=== PATIENT | male | born 1950 | race Caucasian/White ===

== ENCOUNTER 2017-02-19 17:19 | Emergency (ER) | payer BC ==
[2017-02-19] MEDS ORDERED: Sodium Chloride 0.9% 1,000 ML IV SCH (17:30)
--- NOTE | 2017-02-19 18:04 | EDM.PDOC ---
ED HPI GENERAL MEDICAL PROBLEM - General Chief Complaint: Neuro Symptoms/Deficits Stated Complaint: UNRESPONSIVE Time Seen by Provider: 02/19/17 17:30 Source of Information: Reports: EMS, Family History Limitations: Reports: Altered Mental Status, Intoxication - History of Present Illness INITIAL COMMENTS - FREE TEXT/NARRATIVE: 66-year-old male with chronic alcoholism fell yesterday striking the floor and breaking a piece of furniture. He had right-sided bruises and hit his head, his wanted to bring him in for evaluation but he refused. He has been at home alone all day today, his son went in to do a well check on him as he tends to drink when he is alone and found him lying on the floor. Initially he was arousable but he had lots of bruises on the right side of his body, and didn't seem to be able to communicate with his son. EMS was called and brought him in. Onset: Unknown/Unsure Severity: Severe - Related Data Allergies Allergy/AdvReac Type Severity Reaction Status Date / Time No Known Allergies Allergy Verified 02/19/17 18:11 Home Meds: Home Meds Aspirin [Halfprin] 81 mg PO DAILY 07/04/16 [History] Past Medical History HEENT History: Reports: Hard of Hearing Other HEENT History: Right ear injury with hearing loss Respiratory History: Reports: Asthma, Intubation, Previous, Pneumothorax Other Respiratory History: traumaic injury 4 years ago Musculoskeletal History: Reports: Fracture Other Musculoskeletal History: 7 rib fracture with 13 fractures in those ribs Neurological History: Reports: Head Trauma, Other (See Below) Other Neuro History: TBI. crainial fractures Psychiatric History: Reports: Addiction Other Psychiatric History: ETOH - Past Surgical History GI Surgical History: Reports: Hernia, Inguinal Neurological Surgical History: Reports: Lumbar Spine Social & Family History - Tobacco Use Smoking Status *Q: Never Smoker - Caffeine Use Caffeine Use: Reports: None - Recreational Drug Use Recreational Drug Use: No ED ROS GENERAL - Review of Systems Review Of Systems: Unable To Obtain ED EXAM, NEURO - Physical Exam Exam: See Below Exam Limited By: Physical Impairment General Appearance: Alert Eye Exam: Bilateral Eye: EOMI (EOMs are intact but he focuses to the left) Head Exam: Atraumatic (No obvious external traumatic findings) Neck: Supple Respiratory/Chest: No Respiratory Distress, Lungs Clear Cardiovascular: Regular Rate, Rhythm, Other (Bruise on the upper right chest) GI/Abdominal: Soft, Non-Tender, Other (Large bruise over the right abdomen) Neurological: Withdraws to Pain, Other (Weak grasp strength on the right, attention deficit to the right) Skin Exam: Other (Several large bruises over the right side of his body) Course - Vital Signs Last Recorded V/S: Last Vital Signs Temp 99.3 F 02/19/17 17:29 Pulse 98 02/19/17 17:29 Resp 16 02/19/17 17:29 BP 140/84 02/19/17 17:29 Pulse Ox 85 L 02/19/17 17:29 - Orders/Labs/Meds Orders: Active Orders 24 hr Category Date Time Status Head wo Cont [CT] Stat Exams 02/19/17 17:29 Taken Labs: Laboratory Tests 02/19/17 02/19/17 02/19/17 Range/Units 17:39 17:39 17:39 WBC 6.0 (4.5-11.0) K/uL RBC 3.89 L (4.30-5.90) M/uL Hgb 13.8 D (12.0-15.0) g/dL Hct 38.9 L (40.0-54.0) % MCV 100 H (80-98) fL MCH 36 H (27-31) pg MCHC 36 (32-36) % Plt Count 134 L (150-400) K/uL Neut % (Auto) 83 H (36-66) % Lymph % (Auto) 6 L (24-44) % [place] % (Auto) 10 H (2-6) % Eos % (Auto) 0 L (2-4) % Baso % (Auto) 1 (0-1) % Sodium 140 (140-148) mmol/L Potassium 3.8 (3.6-5.2) mmol/L Chloride 101 (100-108) mmol/L Carbon Dioxide 26 (21-32) mmol/L Anion Gap 13.0 (5.0-14.0) mmol/L BUN 7 (7-18) mg/dL Creatinine 0.8 (0.8-1.3) mg/dL Est Cr Clr Drug Dosing TNP Estimated GFR (MDRD) > 60 (>60) Glucose 109 H (74-106) mg/dL Calcium 8.2 L (8.5-10.1) mg/dL Total Bilirubin 2.1 H (0.2-1.0) mg/dL AST 189 H (15-37) U/L ALT 95 H (12-78) U/L Alkaline Phosphatase 131 H (46-116) U/L Creatine Kinase 998 H (39-308) U/L Total Protein 7.2 (6.4-8.2) g/dL Albumin 3.3 L (3.4-5.0) g/dL Globulin 3.9 H (2.3-3.5) g/dL Albumin/Globulin Ratio 0.9 L (1.2-2.2) Ethyl Alcohol 162 mg/dL Meds: Medications Discontinued Medications Generic Name Dose Route Start Last Admin Trade Name Freq PRN Reason Stop Dose Admin Sodium Chloride 1,000 mls @ 1,000 mls/hr 02/19/17 17:30 02/19/17 18:17 Normal Saline IV 1,000 mls/hr ASDIRECTED IVAN Administration - Re-Assessments/Exams Free Text/Narrative Re-Assessment/Exam: 02/19/17 18:[address] scan was obtained and showed a large acute and subacute subdural hemorrhage in the left hemisphere up to 18 mm with shift. CBC was unremarkable. Because of the risk of rhabdomyolysis normal saline bolus was initiated. Urgent transfer by air was arranged to [facility] for neurosurgery consultation and treatment. Chemistry profile was pending at time of dictation. ETOH was .16 Departure - Departure Time of Disposition: 18:49 Disposition: DC/Tfer to Other Condition: Poor Clinical Impression: Alcohol abuse, Subdural hematoma - Discharge Information Referrals: PCP,None [Primary Care Provider] - Forms: ED Department Discharge Care Plan Goals: Patient was transferred by air care to [facility] for neurosurgical consultation and treatment. - My Orders Last 24 Hours: My Active Orders 02/19/17 17:29 Head wo Cont [CT] Stat - Assessment/Plan Last 24 Hours: My Active Orders 02/19/17 17:29 Head wo Cont [CT] Stat
[2017-02-19 18:11] VITALS: BP 140/84
== END 2017-02-19 18:45 | disposition other institution (70) ==
LOC: JP.ED 17:19
DX: S06.5X0A Traumatic subdural hemorrhage without loss of consciousness, initial encounter (principal); S30.1XXA Contusion of abdominal wall, initial encounter; S20.211A Contusion of right front wall of thorax, initial encounter; F10.20 Alcohol dependence, uncomplicated; W01.198A Fall on same level from slipping, tripping and stumbling with subsequent striking against other object, initial encounter; Y90.6 Blood alcohol level of 120-199 mg/100 ml; J45.909 Unspecified asthma, uncomplicated; Z79.82 Long term (current) use of aspirin; Z98.890 Other specified postprocedural states
CPT/HCPCS: 36415; 70450; 80053; 82550; 85025; 96360; 99285; G0480; J7040